=== PATIENT | female | born 1980 | race Caucasian/White ===

== ENCOUNTER 2016-08-08 20:51 | Inpatient (IN) | payer OTHER ==
[~2016-08-08] VITALS: Ht 167.6 cm; Wt 76.2 kg
[~2016-08-08 20:51] MED LIST: ATV/1 PO; CHOL1000 PO; CYAN100048 SC; FERR1TAB23 PO; PEDI1CHW82 PO
[2016-08-08] MEDS ORDERED: ONDANSETRON INJ 2 MG/ML 2 ML VIAL IV STA (21:20)
[2016-08-08] MEDS ORDERED: SODIUM CHLORIDE 0.9% 1000ML 1,000 ML IV STA ×2 (21:20→23:07)
[2016-08-08] MEDS ORDERED: FENTANYL CITRATE INJ 50 MCG/1 ML 2 ML VIAL IV STA (21:20)
[2016-08-08 21:38] LABS: BASO % 0.2 %; BASO ABS # 0.01 K/uL (0-0.2); COMPLETE YES; HEMATOCRIT 39.7 % (37-47); IG% 0.2 %; LYMPH % 14.1 %; LYMPH ABS # 0.86 K/uL (1.2-3.4); MEAN CORPUSCULAR HEMOGLOBIN 30.8 pg (25-34); MEAN PLATELET VOLUME 10.2 fL (7.4-10.4); MONO % 3.1 %; NEUT % 82.4 %; PLATELET COUNT 152 K/uL (130-400); RED BLOOD COUNT 4.51 M/uL (4.2-5.4)
[2016-08-08] MEDS ORDERED: MULT1CHW32 PO (21:48)
[2016-08-08 21:56] LABS: BUN/CREATININE RATIO 14.9 (10-20); CREATININE 0.85 mg/dl (0.60-1.20); POTASSIUM 3.9 mmol/L (3.5-5.1)
[2016-08-08 21:58] LABS: PREG INTERNAL NEGATIVE QC NEG CLEAR BACKGROUND; PREG INTERNAL POSITIVE QC POS CONTROL LINE
--- NOTE | 2016-08-08 22:09 | EMERGENCY ROOM VISIT NOTE ---
History Report prepared by Jeanna: Rory Monroe Under the Supervision of: Dr. Boy Mina M.D. First contact with patient: 21:13 Chief Complaint: ABDOMINAL PAIN Stated Complaint: R ABD PAIN,FEVER Nursing Triage Summary: c/o right lateral abd pain that started at 1100 today while at work. also c/o n/v no diarrhea. History of Present Illness The patient is a 35 year old female who presents to the Emergency Room with complaints of right mid abdominal pain that began this morning. She rates the pain a 6/10 in severity. She awoke with this abdominal pain that has been getting worse all day. She has not had much of an appetite all day due to her increasing nausea. She then began to develop a fever, chills, and fatigue. She states that moving makes it worse and rest makes it better. She denies any history of abdominal surgery and recent trauma. She denies any chest pain, shortness of breath, rashes, syncope, headache, or back pain. Source of History: patient Onset: this morning Position: abdomen Symptom Intensity: 6/10 Quality: sharp Timing: worsening Modifying Factors (Worsening): movement Modifying Factors (Relieving): rest Associated Symptoms: + chills, + fevers, + nausea, No LOC, No SOB, No back pain, No chest pain, No headache, No rash Review of Systems See HPI for pertinent positives & negatives. A total of 10 systems reviewed and were otherwise negative. Past Medical & Surgical Medical Problems: (1) Bronchitis (2) Hypopotassemia (3) Hypovolemia (4) Kidney stone on right side Family History Diabetes mellitus Social History Smoking Status: Never Smoker Smokeless Tobacco Use: No Drug Use: none Occupation Status: employed Current/Historical Medications Scheduled Multiple Vitamins W/ Minerals (Alive Womens Gummy Vitami), 2 TAB PO QPM Allergies Coded Allergies: Iodine (Unverified Allergy, Unknown, UNKN, 12/01/15) Sulfamethoxazole (Unverified Allergy, Unknown, UNKN, 12/01/15) Physical Exam Vital Signs Date Time Temp Pulse Resp B/P Pulse Ox O2 Delivery O2 Flow Rate FiO2 08/08/16 23:10 80 18 128/69 96 Room Air 08/08/16 22:04 36.9 83 16 123/74 100 Room Air 08/08/16 21:14 37.1 96 18 151/86 99 Room Air Physical Exam GENERAL: Patient is uncomfortable appearing and in moderate acute distress. HEENT: No acute trauma, normocephalic atraumatic, mucous membranes moist, no nasal congestion, no scleral icterus. NECK: No stridor, no adenopathy, no meningismus, trachea is midline. LUNGS: No dyspnea. Clear to auscultation and equal bilaterally. No wheeze, no rhonchi. HEART: Regular rate and rhythm. No murmurs, rubs, gallops appreciated. ABDOMEN: Soft, moderately tender to the right mid abdomen with increased pain to the right lower quadrant, bowel sounds positive, no masses appreciated, no peritonitis. BACK: No midline tenderness, no CVA tenderness EXTREMITIES: Normal motion all extremities, no cyanosis, no edema. Wasting of upper and lower extremities. NEUROLOGIC: Alert and oriented, no acute motor or sensory deficits, no focal weakness, cranial nerves grossly intact. SKIN: No rash, no jaundice, no diaphoresis. Medical Decision & Procedures ER Provider Diagnostic Interpretation: Radiology results are stated below per my review and radiologist interpretation: ABDOMEN AND PELVIS CT WITHOUT CONTRAST CT DOSE: 1172.73 mGy.cm HISTORY: Right lower quadrant abdominal pain. TECHNIQUE: Multiaxial CT images of the abdomen and pelvis were performed without the use of intravenous and oral contrast according to the standard department stone protocol. COMPARISON STUDY: None. FINDINGS: There is a 1.5 cm obstructing stone at the right ureteropelvic junction resulting in moderate right hydronephrosis. No left renal calculi. The lung bases are essentially clear. No fractures within the visualized osseous structures. The liver, gallbladder, spleen, adrenal glands, and pancreas are unremarkable. No retroperitoneal lymphadenopathy. Bladder is not well-distended but appears unremarkable. The uterus and bilateral ovaries are within normal limits. Trace pelvic free fluid which is likely physiologic. Suboptimal evaluation for bowel pathology due to the lack of intravenous and oral contrast. However, there is no definite bowel wall thickening or obstruction. Normal appendix. IMPRESSION: A 1.5 cm obstructing stone at the right ureteropelvic junction resulting in moderate right hydronephrosis. Electronically signed by: Markos Herr M.D. 08/08/2016 10:15 PM Dictated Date/Time: 08/08/2016 10:10 PM Laboratory Results 08/08/16 21:28 Red Blood Count 4.51, Mean Corpuscular Volume 88.0, Mean Corpuscular Hemoglobin 30.8, Mean Corpuscular Hemoglobin Concent 35.0, Mean Platelet Volume 10.2, Neutrophils (%) (Auto) 82.4, Lymphocytes (%) (Auto) 14.1, Monocytes (%) (Auto) 3.1, Eosinophils (%) (Auto) 0.0, Basophils (%) (Auto) 0.2, Neutrophils # (Auto) 5.03, Lymphocytes # (Auto) 0.86, Monocytes # (Auto) 0.19, Eosinophils # (Auto) 0.00, Basophils # (Auto) 0.01 08/08/16 21:28 Test 08/08/16 21:28 08/08/16 22:35 White Blood Count 6.10 K/uL (4.8-10.8) Red Blood Count 4.51 M/uL (4.2-5.4) Hemoglobin 13.9 g/dL (12.0-16.0) Hematocrit 39.7 % (37-47) Mean Corpuscular Volume 88.0 fL (80-100) Mean Corpuscular Hemoglobin 30.8 pg (25-34) Mean Corpuscular Hemoglobin Concent 35.0 g/dl (32-36) Platelet Count 152 K/uL (130-400) Mean Platelet Volume 10.2 fL (7.4-10.4) Neutrophils (%) (Auto) 82.4 % Lymphocytes (%) (Auto) 14.1 % Monocytes (%) (Auto) 3.1 % Eosinophils (%) (Auto) 0.0 % Basophils (%) (Auto) 0.2 % Neutrophils # (Auto) 5.03 K/uL (1.4-6.5) Lymphocytes # (Auto) 0.86 K/uL (1.2-3.4) Monocytes # (Auto) 0.19 K/uL (0.11-0.59) Eosinophils # (Auto) 0.00 K/uL (0-0.5) Basophils # (Auto) 0.01 K/uL (0-0.2) RDW Standard Deviation 46.8 fL (36.4-46.3) RDW Coefficient of Variation 14.5 % (11.5-14.5) Immature Granulocyte % (Auto) 0.2 % Immature Granulocyte # (Auto) 0.01 K/uL (0.00-0.02) Anion Gap 8.0 mmol/L (3-11) Est Creatinine Clear Calc Drug Dose 97.2 ml/min Estimated GFR () 103.6 Estimated GFR (Non- 89.4 BUN/Creatinine Ratio 14.9 (10-20) Calcium Level 9.0 mg/dl (8.5-10.1) Total Bilirubin 0.5 mg/dl (0.2-1) Direct Bilirubin 0.2 mg/dl (0-0.2) Aspartate Amino Transf (AST/SGOT) 18 U/L (15-37) Alanine Aminotransferase (ALT/SGPT) 25 U/L (12-78) Alkaline Phosphatase 63 U/L (45-117) Total Protein 7.6 gm/dl (6.4-8.2) Albumin 4.1 gm/dl (3.4-5.0) Lipase 144 U/L (73-393) Human Chorionic Gonadotropin, Qual NEG (NEG) Urine Color YELLOW Urine Appearance CLEAR (CLEAR) Urine pH 5.5 (4.5-7.5) Urine Specific Diller 1.021 (1.000-1.030) Urine Protein NEG (NEG) Urine Glucose (UA) NEG (NEG) Urine Ketones 1+ (NEG) Urine Occult Blood 2+ (NEG) Urine Nitrite NEG (NEG) Urine Bilirubin NEG (NEG) Urine Urobilinogen NEG (NEG) Urine Leukocyte Esterase SMALL (NEG) Urine WBC (Auto) 5-10 /hpf (0-5) Urine RBC (Auto) 5-10 /hpf (0-4) Urine Hyaline Casts (Auto) 10-30 /lpf (0-5) Urine Epithelial Cells (Auto) >30 /lpf (0-5) Urine Bacteria (Auto) 1+ (NEG) Urine Test NEG (NEG) Laboratory results as reviewed by me. Medications Administered Medications (Trade) Dose Ordered Sig/Val Route Start Time Stop Time Status Last Admin Dose Admin Fentanyl Citrate (Fentanyl Inj) 50 mcg NOW STAT IV 08/08/16 21:20 08/08/16 21:22 DC 08/08/16 21:35 50 MCG Ondansetron HCl 4 mg 4 mg NOW STAT IV 08/08/16 21:20 08/08/16 21:22 DC 08/08/16 21:35 4 MG Sodium Chloride (Nss 1000ml) 1,000 ml @ 999 mls/hr Q1H1M STAT IV 08/08/16 21:20 08/08/16 22:20 DC 08/08/16 21:34 999 MLS/HR Hydromorphone HCl 0.5 mg 0.5 mg NOW STAT IV 08/08/16 22:41 08/08/16 22:42 DC 08/08/16 22:46 0.5 MG Sodium Chloride (Nss 1000ml) 1,000 ml @ 200 mls/hr Q5H STAT IV 08/08/16 23:07 08/09/16 01:17 DC 08/08/16 23:18 200 MLS/HR Ceftriaxone Sodium (Rocephin Inj) 1 gm NOW STAT IV 08/08/16 23:07 08/08/16 23:08 DC 08/08/16 23:17 1 GM ED Course 3: The patient was evaluated in room A11. A complete history and physical exam was performed. 0: Ordered Sodium Chloride 1000 ml @ 999 mls/hr IV, Zofran Inj 4 mg IV, Fentanyl Inj 50 mcg IV 2134: The patient's IV is in place, and she is getting pain medications. 2152: She is feeling much better and denies the need for further pain medications. 2232: After reassessment, the patient is feeling "alright". 2241: The patient's pain is increasing at this time. However, she would like to go home. 2236: I spoke with Dr. Kitchen of Urology at this time. He said that if the patient still wants to go home and she has no fever, she has clean urine, and a normal white count, then she can attempt to do home treatment. Otherwise, he believes she should be admitted. 2307: Her pain continues as well as her urine showing some white cells. She will be evaluated further as an inpatient. 235: Upon reevaluation, the patient is resting. Discussed results and treatment plan with the patient. She verbalized understanding and agreement with the treatment plan. The patient will be evaluated by Dr. Briseno - [facility], for further management. Medical Decision Differential: Appendicitis, , MSK, Diverticulitis, UTI, Renal Colic, Bowel Obstruction, Aortic Pathology, , amongst other pathologies entertained. 35 yr old female arrives with right mid abdominal pain and low grad fevers throughout the day. Quite stoic though clearly uncomfortable. Improved with fentanyl though eventually requiring further IV narcotics. Given degree of discomfort felt that CT indicated which revealed 1.5cm right proximal ureteral stone with right hydro. This is consistent with cause of her pain. With persistent pain I feel she will need to come in. Does have WBC and bacteria in urine though I suspect this is due to unclean catch. With reported fevers however will treat empirically for infection. She is not hypotensive nor is wbc elevated. Discussed with hospitalist and urology. Consults Time Called: 2229 Consulting Physician: Dr. Kitchen - Urology Returned Call: [phone] We discussed the patient's case. Additional Consults: Time Called: 2353 Consulted Physician: Dr. Briseno - [facility] Returned Call: [phone] Additional Comments: He will be evaluating the patient for further management. Impression Primary Impression: Right ureteral stone Additional Impressions: Hydronephrosis Intractable pain Scribe Attestation The scribe's documentation has been prepared under my direction and personally reviewed by me in its entirety. I confirm that the note above accurately reflects all work, treatment, procedures, and medical decision making performed by me. Departure Information Dispostion Being Evaluated By Hospitalist Referrals Shaq Thomas M.D. (PCP) Patient Instructions My [facility] Problem Qualifiers Additional Impressions: Hydronephrosis Hydronephrosis type: with renal calculous obstruction Qualified Codes: N13.2 - Hydronephrosis with renal and ureteral calculous obstruction
--- NOTE | 2016-08-08 22:18 | DIAGNOSTIC IMAGING REPORT ---
ABDOMEN AND PELVIS CT WITHOUT CONTRAST CT DOSE: 1172.73 mGy.cm HISTORY: Right lower quadrant abdominal pain. TECHNIQUE: Multiaxial CT images of the abdomen and pelvis were performed without the use of intravenous and oral contrast according to the standard department stone protocol. COMPARISON STUDY: None. FINDINGS: There is a 1.5 cm obstructing stone at the right ureteropelvic junction resulting in moderate right hydronephrosis. No left renal calculi. The lung bases are essentially clear. No fractures within the visualized osseous structures. The liver, gallbladder, spleen, adrenal glands, and pancreas are unremarkable. No retroperitoneal lymphadenopathy. Bladder is not well-distended but appears unremarkable. The uterus and bilateral ovaries are within normal limits. Trace pelvic free fluid which is likely physiologic. Suboptimal evaluation for bowel pathology due to the lack of intravenous and oral contrast. However, there is no definite bowel wall thickening or obstruction. Normal appendix. IMPRESSION: A 1.5 cm obstructing stone at the right ureteropelvic junction resulting in moderate right hydronephrosis. Electronically signed by: Markos Herr M.D. 08/08/2016 10:15 PM Dictated Date/Time: 08/08/2016 10:10 PM
[2016-08-08] MEDS ORDERED: HYDROmorphone INJ 0.5 MG/0.5 ML SYR IV STA (22:41)
[2016-08-08 22:49] LABS: URINE APPEARANCE CLEAR (CLEAR); URINE BILIRUBIN NEG (NEG); URINE COLOR YELLOW; URINE EPITHELIAL CELL AUTO >30 /lpf (0-5); URINE NITRITE NEG (NEG); URINE PH 5.5 (4.5-7.5); URINE SPECIFIC GRAVITY 1.021 (1.000-1.030); UROBILINOGEN NEG (NEG); ZZUR CULT IF INDIC CLEAN CATCH YES
[2016-08-08 22:50] LABS: MANUAL MICROSCOPIC REQUIRED? NO; REVIEW REQ? NO
[2016-08-08] MEDS ORDERED: CEFTRIAXONE SOD INJ 1 GM ADDVIAL IV STA (23:07)
[2016-08-08] MEDS ORDERED: HYDROmorphone INJ 1 MG/ML SYR IV PRN (23:15)
[2016-08-09] VITALS (7 sets, daily range): BP systolic 107–116; BP diastolic 67–77; PULSE 71–84; TEMP 36.5–37.1; O2SAT 90–100; Ht 167.6 cm; Wt 76.2 kg
[2016-08-09] MEDS ORDERED: ACETAMINOPHEN 325 MG TAB PO PRN
[2016-08-09] MEDS ORDERED: POLYETHYLENE (MIRALAX) 17 GM PACK PO PRN
[2016-08-09] MEDS ORDERED: MAGNESIUM HYDROXIDE SUSP 30 ML UDC PO PRN
--- NOTE | 2016-08-09 00:11 | History and Physical ---
History & Physical Date & Time of Service: Aug 09, 2016 at 00:10 Chief Complaint: R Abd Pain,Fever Primary Care Physician: Shaq Thomas M.D. History of Present Illness Source: patient 35-year-old female with past history anemia, retinitis pigmentosa, idiopathic ataxia and sensory neuropathy presented with right sided abdominal pain that started this morning. Pain is rated as 6/10, constant with no radiation. Associated with nausea , vomiting, dry heaves. She also developed some chills with fever. Denies any dysuria, frequency, urgency, hematuria. Denies any vaginal bleeding, vaginal discharge or itching. Denies any history of abdominal surgery. No history of kidney stones. Family history of kidney stones in grandmother. Denies back pain, diarrhea, constipation or rectal bleeding or melena. She had a recent endoscopy and colonoscopy which revealed mild gastritis and hemorrhoids. Past Medical/Surgical History Medical Problems: (1) Bronchitis Status: Resolved (2) Hypopotassemia Status: Resolved (3) Hypovolemia Status: Resolved Family History Diabetes mellitus Social History Smoking Status: Never Smoker Smokeless Tobacco Use: No Drug Use: none Occupational Status: employed [employer] History of MDRO: No Allergies Coded Allergies: Iodine (Unverified Allergy, Unknown, UNKN, 12/01/15) Sulfamethoxazole (Unverified Allergy, Unknown, UNKN, 12/01/15) Home Medications Scheduled Multiple Vitamins W/ Minerals (Alive Womens [place]umwalter Vitami), 2 TAB PO QPM Review of Systems Constitutional: + chills, + fever Eyes: No worsening of vision ENT: No hearing loss, No unusual epistaxis Respiratory: No cough, No shortness of breath, No sputum Cardiovascular: No chest pain Abdomen: + nausea, + pain (Right), + vomiting, No GI bleeding, No diarrhea Genitourinary - Female: No dysuria, No urinary frequency, No urinary urgency, No vaginal bleeding, No vaginal discharge, No vaginal itching Neurologic: + numbness/tingling (of b/l lower extremities) Psychiatric: No depression symptoms Endocrine: No fatigue Physical Exam Vital Signs Date Time Temp Pulse Resp B/P Pulse Ox O2 Delivery O2 Flow Rate FiO2 08/08/16 23:10 80 18 128/69 96 Room Air 08/08/16 22:04 36.9 83 16 123/74 100 Room Air 08/08/16 21:14 37.1 96 18 151/86 99 Room Air General Appearance: WD/WN, + mild distress Head: normocephalic Eyes: normal inspection ENT: normal ENT inspection, hearing grossly normal, TMs normal Neck: supple, no adenopathy Respiratory/Chest: chest non-tender, lungs clear, normal breath sounds, no respiratory distress, no accessory muscle use Cardiovascular: regular rate, rhythm, no edema Abdomen/GI: normal bowel sounds, soft, + tenderness (on the right side) Back: normal inspection, no CVA tenderness Extremities/Musculoskelatal: no pedal edema Neurologic/Psych: alert, normal mood/affect, oriented x 3 Skin: normal color Diagnostics Laboratory Results Results Past 24 Hours Test 08/08/16 21:28 08/08/16 22:35 Range/Units White Blood Count 6.10 4.8-10.8 K/uL Red Blood Count 4.51 4.2-5.4 M/uL Hemoglobin 13.9 12.0-16.0 g/dL Hematocrit 39.7 37-47 % Mean Corpuscular Volume 88.0 80-100 fL Mean Corpuscular Hemoglobin 30.8 25-34 pg Mean Corpuscular Hemoglobin Concent 35.0 32-36 g/dl Platelet Count 152 130-400 K/uL Mean Platelet Volume 10.2 7.4-10.4 fL Neutrophils (%) (Auto) 82.4 % Lymphocytes (%) (Auto) 14.1 % Monocytes (%) (Auto) 3.1 % Eosinophils (%) (Auto) 0.0 % Basophils (%) (Auto) 0.2 % Neutrophils # (Auto) 5.03 1.4-6.5 K/uL Lymphocytes # (Auto) 0.86 1.2-3.4 K/uL Monocytes # (Auto) 0.19 0.11-0.59 K/uL Eosinophils # (Auto) 0.00 0-0.5 K/uL Basophils # (Auto) 0.01 0-0.2 K/uL RDW Standard Deviation 46.8 36.4-46.3 fL RDW Coefficient of Variation 14.5 11.5-14.5 % Immature Granulocyte % (Auto) 0.2 % Immature Granulocyte # (Auto) 0.01 0.00-0.02 K/uL Sodium Level 142 136-145 mmol/L Potassium Level 3.9 3.5-5.1 mmol/L Chloride Level 108 98-107 mmol/L Carbon Dioxide Level 26 21-32 mmol/L Anion Gap 8.0 3-11 mmol/L Blood Urea Nitrogen 13 7-18 mg/dl Creatinine 0.85 0.60-1.20 mg/dl Est Creatinine Clear Calc Drug Dose 97.2 ml/min Estimated GFR () 103.6 Estimated GFR (Non- 89.4 BUN/Creatinine Ratio 14.9 10-20 Random Glucose 116 70-99 mg/dl Calcium Level 9.0 8.5-10.1 mg/dl Total Bilirubin 0.5 0.2-1 mg/dl Direct Bilirubin 0.2 0-0.2 mg/dl Aspartate Amino Transf (AST/SGOT) 18 15-37 U/L Alanine Aminotransferase (ALT/SGPT) 25 12-78 U/L Alkaline Phosphatase 63 45-117 U/L Total Protein 7.6 6.4-8.2 gm/dl Albumin 4.1 3.4-5.0 gm/dl Lipase 144 73-393 U/L Human Chorionic Gonadotropin, Qual NEG NEG Urine Color YELLOW Urine Appearance CLEAR CLEAR Urine pH 5.5 4.5-7.5 Urine Specific Ulysses 1.021 1.000-1.030 Urine Protein NEG NEG Urine Glucose (UA) NEG NEG Urine Ketones 1+ NEG Urine Occult Blood 2+ NEG Urine Nitrite NEG NEG Urine Bilirubin NEG NEG Urine Urobilinogen NEG NEG Urine Leukocyte Esterase SMALL NEG Urine WBC (Auto) 5-10 0-5 /hpf Urine RBC (Auto) 5-10 0-4 /hpf Urine Hyaline Casts (Auto) 10-30 0-5 /lpf Urine Epithelial Cells (Auto) >30 0-5 /lpf Urine Bacteria (Auto) 1+ NEG Urine Test NEG NEG Microbiology Results 08/08/16 Urine Culture, Received Pending Diagnostic Radiology ABDOMEN AND PELVIS CT WITHOUT CONTRAST CT DOSE: 1172.73 mGy.cm HISTORY: Right lower quadrant abdominal pain. TECHNIQUE: Multiaxial CT images of the abdomen and pelvis were performed without the use of intravenous and oral contrast according to the standard department stone protocol. COMPARISON STUDY: None. FINDINGS: There is a 1.5 cm obstructing stone at the right ureteropelvic junction resulting in moderate right hydronephrosis. No left renal calculi. The lung bases are essentially clear. No fractures within the visualized osseous structures. The liver, gallbladder, spleen, adrenal glands, and pancreas are unremarkable. No retroperitoneal lymphadenopathy. Bladder is not well-distended but appears unremarkable. The uterus and bilateral ovaries are within normal limits. Trace pelvic free fluid which is likely physiologic. Suboptimal evaluation for bowel pathology due to the lack of intravenous and oral contrast. However, there is no definite bowel wall thickening or obstruction. Normal appendix. IMPRESSION: A 1.5 cm obstructing stone at the right ureteropelvic junction resulting in moderate right hydronephrosis. Impression Assessment and Plan 35-year-old female with past history anemia, retinitis pigmentosa, idiopathic ataxia and sensory neuropathy presented with right sided abdominal pain that started this morning. Associated with nausea, vomiting, fever and chills. CT abdomen and pelvis revealed 1.5 cm obstructing stone at the right ureteropelvic junction. Considering the size of the stone, it is unlikely to pass spontaneously. some concern of infection as UA revealed small leuc esterase and few WBCs and she has an obstructing renal calculus. will cover empirically. Complicated UTI with obstructing Right renal calculus : - CT abdomen and pelvis :1.5 cm obstructing stone at the right ureteropelvic junction resulting in moderate right hydronephrosis. - IV fluids NSS at 150 mls/hr - UA: 2+ occult blood, small leuk esterase, WBCs 5-10 - UC pending - IV Rocephin daily to cover for infection - Pain control with IV Dilaudid( avoided NSAIDS in anticipation of lithotripsy) - Urology consult Full code DVT : SCD Disposition: admitted to Med/surg Level of Care Med/Surg Resuscitation Status FULL RESUSCITATION VTE Prophylaxis VTE Risk Assessment Done? Y/N: Yes Risk Level: Moderate Given or contraindicated: SCD's (laboratory) Note Total Time: Critical Care 30 - 74 minutes Resident Tracking Resident Involvement: Resident Care Provided Care Provided: Adult [facility] Medicine Assessment and Plan Attending Addendum: I have physically seen and examined this patient, have directed their medical care, have supervised the medical residents activities, and agree with the H&P as noted above, with the following changes: NONE
[2016-08-09] MEDS: SODIUM CHLORIDE 0.9% 1000ML 1,000 ML IV SCH ×3 (04:11→14:51)
[2016-08-09] MEDS: HYDROmorphone INJ 0.5 MG/0.5 ML SYR IV PRN ×2 (04:15→08:33)
[2016-08-09 06:00] LABS: MEAN CELL VOLUME 89.1 fL (80-100); MEAN CORPUSCULAR HEMOGLOBIN 29.8 pg (25-34); MEAN CORPUSCULAR HGB CONC 33.4 g/dl (32-36); MEAN PLATELET VOLUME 10.1 fL (7.4-10.4); PLATELET COUNT 135 K/uL (130-400); RED BLOOD COUNT 3.93 M/uL (4.2-5.4); WHITE BLOOD COUNT 5.96 K/uL (4.8-10.8)
[2016-08-09 06:38] LABS: BUN/CREATININE RATIO 12.1 (10-20); CALCIUM 8.1 mg/dl (8.5-10.1); CREATININE 0.57 mg/dl (0.60-1.20); POTASSIUM 3.7 mmol/L (3.5-5.1)
[2016-08-09] MEDS ORDERED: CIPROFLOXACIN 400MG / 200ML D5W IV ONE (07:30)
--- NOTE | 2016-08-09 08:13 | Urology Consultation ---
History General Date of Service: Aug 09, 2016. Chief Complaint: right flank pain Primary Care Physician: Shaq Thomas M.D. History of Present Illness 35 yo female presents to [facility] with c/o right flank pain, n/v, and fever of 100F that started yesterday. CT scan showing a 1.5cm right UPJ stone. She denies a previous hx of stones. White count is normal. Cr is normal. UC&S is pending. She has been afebrile since admission. Pain is currently controlled. Denies dysuria or hematuria. Denies n/v this morning. Imaging Imaging: CT Laboratory Last 24 Hours Test 08/08/16 21:28 08/08/16 22:35 08/09/16 05:06 White Blood Count 6.10 K/uL 5.96 K/uL Red Blood Count 4.51 M/uL 3.93 M/uL Hemoglobin 13.9 g/dL 11.7 g/dL Hematocrit 39.7 % 35.0 % Mean Corpuscular Volume 88.0 fL 89.1 fL Mean Corpuscular Hemoglobin 30.8 pg 29.8 pg Mean Corpuscular Hemoglobin Concent 35.0 g/dl 33.4 g/dl Platelet Count 152 K/uL 135 K/uL Mean Platelet Volume 10.2 fL 10.1 fL Neutrophils (%) (Auto) 82.4 % Lymphocytes (%) (Auto) 14.1 % Monocytes (%) (Auto) 3.1 % Eosinophils (%) (Auto) 0.0 % Basophils (%) (Auto) 0.2 % Neutrophils # (Auto) 5.03 K/uL Lymphocytes # (Auto) 0.86 K/uL Monocytes # (Auto) 0.19 K/uL Eosinophils # (Auto) 0.00 K/uL Basophils # (Auto) 0.01 K/uL RDW Standard Deviation 46.8 fL 48.0 fL RDW Coefficient of Variation 14.5 % 14.5 % Immature Granulocyte % (Auto) 0.2 % Immature Granulocyte # (Auto) 0.01 K/uL Sodium Level 142 mmol/L 143 mmol/L Potassium Level 3.9 mmol/L 3.7 mmol/L Chloride Level 108 mmol/L 110 mmol/L Carbon Dioxide Level 26 mmol/L 27 mmol/L Anion Gap 8.0 mmol/L 6.0 mmol/L Blood Urea Nitrogen 13 mg/dl 7 mg/dl Creatinine 0.85 mg/dl 0.57 mg/dl Est Creatinine Clear Calc Drug Dose 97.2 ml/min 145.0 ml/min Estimated GFR () 103.6 140.2 Estimated GFR (Non- 89.4 121.0 BUN/Creatinine Ratio 14.9 12.1 Random Glucose 116 mg/dl 86 mg/dl Calcium Level 9.0 mg/dl 8.1 mg/dl Total Bilirubin 0.5 mg/dl Direct Bilirubin 0.2 mg/dl Aspartate Amino Transf (AST/SGOT) 18 U/L Alanine Aminotransferase (ALT/SGPT) 25 U/L Alkaline Phosphatase 63 U/L Total Protein 7.6 gm/dl Albumin 4.1 gm/dl Lipase 144 U/L Human Chorionic Gonadotropin, Qual NEG Urine Color YELLOW Urine Appearance CLEAR Urine pH 5.5 Urine Specific [place] 1.021 Urine Protein NEG Urine Glucose (UA) NEG Urine Ketones 1+ Urine Occult Blood 2+ Urine Nitrite NEG Urine Bilirubin NEG Urine Urobilinogen NEG Urine Leukocyte Esterase SMALL Urine WBC (Auto) 5-10 /hpf Urine RBC (Auto) 5-10 /hpf Urine Hyaline Casts (Auto) 10-30 /lpf Urine Epithelial Cells (Auto) >30 /lpf Urine Bacteria (Auto) 1+ Urine Test NEG Problem List Medical Problems: (1) Hydronephrosis Status: Acute (2) Intractable pain Status: Acute (3) Right ureteral stone Status: Acute Past History other (anemia, retinitis pigmentosa, idiopathic ataxia, hemorrhoids, gastritis) Past Surgical History: other (cataract surgery) Family History Diabetes mellitus nephrolithiasis Social History Smoking: non-smoker Drug use: none Occupation status: employed History of MDRO No Allergies Coded Allergies: Iodine (Verified Allergy, Unknown, UNKNOWN, 08/09/16) Sulfa Antibiotics (Verified Allergy, Unknown, UNKNOWN, 08/09/16) Sulfamethoxazole (Verified Allergy, Unknown, UNKNOWN, 08/09/16) Medications Home Medications: Home Meds and Scripts Medications Dose Route/Sig Max Daily Dose Days Date Category Alive Womens Gummy Vitami (Multiple Vitamins W/ Minerals) 1 Chw Chw 2 Tab PO QPM 08/08/16 Reported Inpatient Medications: Current Inpatient Medications Medications (Trade) Dose Ordered Sig/Val Route Start Time Stop Time Status Last Admin Dose Admin Acetaminophen (Tylenol Tab) 650 mg Q4H PRN PO 08/09/16 00:00 09/08/16 00:00 Magnesium Hydroxide (Milk Of Magnesia Susp) 30 ml Q6H PRN PO 08/09/16 00:00 09/08/16 00:00 Polyethylene (Miralax Powder Packet) 17 gm DAILY PRN PO 08/09/16 00:00 09/08/16 00:00 Ondansetron HCl 4 mg 4 mg Q6H PRN IV 08/09/16 00:00 09/08/16 00:00 Sodium Chloride (Nss 1000ml) 1,000 ml @ 150 mls/hr Q6H40M IV 08/09/16 01:15 09/08/16 01:14 08/09/16 04:11 150 MLS/HR Hydromorphone HCl 0.5 mg 0.5 mg Q2H PRN IV 08/09/16 00:00 08/23/16 00:00 08/09/16 04:15 0.5 MG Ceftriaxone Sodium/Dextrose (Rocephin Inj/ Dextrose Add-[place] 50ML) 50 ml @ 100 mls/hr Q24H IV 08/09/16 23:00 08/17/16 23:29 Review of Systems Review of Systems Constitutional: No chills, No fever Eyes: No double vision Neurological: No dizzy Endocrine: No excessive thirst Gastrointestinal: No abdominal pain, No nausea, No vomiting Cardiovascular: No chest pain Respiratory: No shortness of breath Skin: No rash Musculoskeletal: No back pain Female : No blood in urine, No painful urination Physical Exam Vital Signs: Vital Signs Past 12 Hours Date Time Temp Pulse Resp B/P Pulse Ox O2 Delivery O2 Flow Rate FiO2 08/09/16 07:15 Room Air 08/09/16 06:45 36.8 82 19 107/70 100 Room Air 08/09/16 01:15 37.1 75 16 108/67 97 Room Air 08/09/16 01:10 98 Room Air 08/09/16 00:53 71 18 116/70 98 08/08/16 23:10 80 18 128/69 96 Room Air 08/08/16 22:04 36.9 83 16 123/74 100 Room Air 08/08/16 21:14 37.1 96 18 151/86 99 Room Air Physical Exam: General Appearance: no apparent distress Eyes: bilateral eyes normal inspection ENT: hearing grossly normal Neck: no JVD Respiratory/Chest: no respiratory distress, no accessory muscle use Cardiovascular: no JVD Extremities: normal inspection Neurologic/Psychiatric: alert, normal mood/affect, oriented x 3 Skin: normal color Assessment & Plan Assessment & Plan Treatment Planned: cystoscopy w/ stent A/P: 1.5cm right UPJ stone AFVSS. Stone too large to pass on own. I have recommended a cysto with right ureteral stent placement today followed by ESWL this Tuesday. Risks and benefits of the procedure discussed with the pt. All questions answered. Pt agrees to the procedure at this time. Consent obtained. Will obtain a pre-op EKG and chest x-ray this morning. I have ordered a dose of Cipro pre-op. Recommend she remain off any NSAIDS or other anticoagulants as it is planned she have ESWL this Tuesday. Thanks for the consult. Will continue to follow along with primary service.
--- NOTE | 2016-08-09 08:36 | DIAGNOSTIC IMAGING REPORT ---
CHEST 2 VIEWS ROUTINE CLINICAL HISTORY: Right ureteral stone. Preoperative evaluation. COMPARISON STUDY: No previous studies for comparison. FINDINGS: Lung volumes are normal. Lungs are clear. There is no pneumothorax or pleural effusion. Pulmonary vascularity is normal. Cardiac size is normal. Mediastinal contours are normal. IMPRESSION: No acute cardiopulmonary findings. Electronically signed by: Jaden Mota M.D. 08/09/2016 8:34 AM Dictated Date/Time: 08/09/2016 8:34 AM
--- NOTE | 2016-08-09 08:38 | DIAGNOSTIC IMAGING REPORT ---
KUB CLINICAL HISTORY: Preoperative evaluation. Calculus. COMPARISON STUDY: CT of the abdomen and pelvis August 08, 2016. FINDINGS: A 1.3 cm right sided urinary calculus is again noted. This may be within the right renal pelvis. Pelvic calcifications represent fluid was. Bowel gas pattern is normal. IMPRESSION: 1.3 cm right sided urinary calculus which may be within the right renal pelvis. Electronically signed by: Jaden Mota M.D. 08/09/2016 8:36 AM Dictated Date/Time: 08/09/2016 8:35 AM
[2016-08-09] MEDS ORDERED: LIDOCAINE HCL 2% 2 ML VIAL (20MG/ML) ONE (11:27)
[2016-08-09] MEDS ORDERED: MIDAZOLAM HCL 1 MG/ML 2ML VIAL ONE (11:27)
[2016-08-09] MEDS ORDERED: PROPOFOL IV EMULSION 10 MG/ML 20 ML VIAL IV ONE (11:27)
[2016-08-09] MEDS ORDERED: FENTANYL CITRATE INJ 50 MCG/1 ML 2 ML VIAL ONE ×2 (11:28→13:34)
[2016-08-09] MEDS ORDERED: CIPROFLOXACIN 400MG / 200ML D5W ONE (11:45)
--- NOTE | 2016-08-09 12:10 | History & Physical Bridge Note ---
H&P Re-Evaluation Bridge Note: I have examined the patient, reviewed the History & Physical and in the interval since the performance of the History & Physical I have noted the following changes of clinical significance: No changes noted
[2016-08-09] MEDS ORDERED: CONRAY 30% 150ML BOTTLE ONE (12:29)
[2016-08-09] MEDS ORDERED: ONDANSETRON INJ 2 MG/ML 2 ML VIAL ONE (12:59)
[2016-08-09] MEDS ORDERED: DEXAMETHASONE SOD INJ 4 MG/ML VIAL ONE (12:59)
--- NOTE | 2016-08-09 13:08 | [facility] Post Operative Brief Note ---
Immediate Operative Summary Operative Date Aug 09, 2016. Pre-Operative Diagnosis Right uteral stone Post-Operative Diagnosis Right uteral stone Procedure(s) Performed cystoscopy, right retrograde pyelogram with placement of right ureteral stent Surgeon Dr. Kline Turner Machine Surgeon(s) none Estimated Blood Loss 0mL Findings large right UPJ stone Specimens none per surgeon Drains 6x26 right stent Anesthesia general Complication(s) None Disposition Recovery Room / PACU
--- NOTE | 2016-08-09 13:23 | DIAGNOSTIC IMAGING REPORT ---
RETROGRADE INCLUDES KUB HISTORY: Right-sided stent placement. FLUOROSCOPY TIME: 25 seconds. FINDINGS: 3 fluoroscopic spot images were submitted for review. Initial images demonstrate retrograde opacification of the right ureter. Filling defect at the ureteropelvic junction consistent with the patient's known stone. Subsequent images demonstrate a guidewire and placement of a right ureteral stent. Only the proximal portion of the stent is visualized but appears to be in good position. IMPRESSION: Fluoroscopy provided for right ureteral stent placement. Electronically signed by: Markos Herr M.D. 08/09/2016 1:21 PM Dictated Date/Time: 08/09/2016 1:20 PM
[2016-08-09] MEDS ORDERED: EpHEDrine SULFATE INJ 50 MG/ML AMP IV PRN (13:30)
[2016-08-09] MEDS ORDERED: FENTANYL CITRATE INJ 50 MCG/1 ML 2 ML VIAL IV PRN (13:30)
[2016-08-09] MEDS ORDERED: PROMETHAZINE HCL INJ 12.5 MG in SODIUM CHLORIDE 0.9% 50ML 50 ML IV PRN (13:30)
[2016-08-09] MEDS ORDERED: NALOXONE HCL 0.4 MG/1 ML VIAL/CARP IV PRN (13:30)
[2016-08-09] MEDS ORDERED: ATROPINE SULFATE 0.1 MG/ML 5ML SYR IV PRN (13:30)
[2016-08-09] MEDS ORDERED: ONDANSETRON INJ 2 MG/ML 2 ML VIAL IV PRN ×2 (13:30)
--- NOTE | 2016-08-09 14:19 | Anesthesiology Progress Note ---
Anesthesia Post Op Note Date & Time Aug 09, 2016 at 14:19 Vital Signs Pain Intensity: 0 Vital Signs Past 12 Hours Date Time Temp Pulse Resp B/P Pulse Ox O2 Delivery O2 Flow Rate FiO2 08/09/16 13:45 36.6 08/09/16 13:35 83 16 118/74 100 Mask 5 08/09/16 13:25 75 16 115/82 100 Mask 5 08/09/16 13:15 78 16 117/82 100 Mask 5 08/09/16 13:07 36.5 72 16 129/77 100 Mask 5 08/09/16 07:15 Room Air 08/09/16 06:45 36.8 82 19 107/70 100 Room Air Notes Mental Status: alert / awake / arousable, participated in evaluation Pt Amnestic to Procedure: Yes Nausea / Vomiting: adequately controlled Pain: adequately controlled Airway Patency, RR, SpO2: stable & adequate BP & HR: stable & adequate Hydration State: stable & adequate Anesthetic Complications: no major complications apparent
[2016-08-09] MEDS ORDERED: CIPR-255 PO (15:31)
--- NOTE | 2016-08-09 15:33 | Discharge Instructions ---
Discharge Instructions Date of Service Aug 09, 2016. Admission Reason for Admission: Kidney Stone On Right Side Discharge Discharge Diagnosis / Problem: 1.5 cm kidney stone Discharge Goals Goal(s): Decrease discomfort, Improve function, Increase independence, Improve disease control, Diagnostic testing, Therapeutic intervention Activity Recommendations Activity Limitations: resume your previous activity Exercise/Sports Limitations: none Patient to be discharged home Prescription sent electronically to pharmacy for antibiotic cipro to take twice a day for 7 days for urinary tract infection If worsening pain, blood in urine, fevers please report to ER Please follow up with Dr Kitchen as scheduled . Current Hospital Diet Patient's current hospital diet: Regular Diet Discharge Diet Recommended Diet: Regular Diet Procedures Procedures Performed: cystoscopy, right retrograde pyelogram with placement of right ureteral stent Pending Studies Studies pending at discharge: no Medical Emergencies . Who to Call and When: Medical Emergencies: If at any time you feel your situation is an emergency, please call 911 immediately. . Non-Emergent Contact Non-Emergency issues call your: Primary Care Provider Call Non-Emergent contact if: you have a fever, your pain is worsening . . "Provider Documentation" section prepared by Damien Medina. VTE Core Measure Inpt VTE Proph given/why not?: SCD's (laboratory)
--- NOTE | 2016-08-09 15:35 | Discharge Summary ---
Discharge Summary Date of Service Aug 09, 2016. Discharge Summary Admission Date: Aug 08, 2016 at 23:54 Discharge Date: Aug 09, 2016 Discharge Disposition: Home Principal Diagnosis: Right kidney stone, UTI Consultations: Urology Medication Reconciliation New Medications: Ciprofloxacin Hcl (Cipro) 500 Mg Tab 500 MG PO BID for 7 Days, #14 TAB Continued Medications: Multiple Vitamins W/ Minerals (Alive Ana Hubbard) 1 Chw Chw 2 TAB PO QPM Discharge Exam Review of Systems: Constitutional: No chills, No fever Respiratory: No cough, No dyspnea on exertion, No shortness of breath, No sputum Cardiovascular: No chest pain, No orthopnea Abdomen: No diarrhea, No nausea, No pain, No vomiting Musculoskeletal: No joint pain, No muscle pain Genitourinary - Female: No dysuria, No urinary frequency, No urinary urgency Neurologic: No paralysis, No weakness Physical Exam: General Appearance: WD/WN, no apparent distress Neck: supple, no adenopathy Respiratory/Chest: chest non-tender, lungs clear, normal breath sounds Cardiovascular: no edema, no gallop Abdomen / GI: non tender, soft Neurologic/Psychiatric: alert, oriented x 3 Hospital Course 35-year-old female with past history anemia, retinitis pigmentosa, idiopathic ataxia and sensory neuropathy presented with right sided abdominal pain that started this morning. Associated with nausea, vomiting, fever and chills. CT abdomen and pelvis revealed 1.5 cm obstructing stone at the right ureteropelvic junction. Considering the size of the stone, it is unlikely to pass spontaneously. some concern of infection as UA revealed small leuc esterase and few WBCs and she has an obstructing renal calculus. will cover empirically. Complicated UTI with obstructing Right renal calculus : - CT abdomen and pelvis - 1.5 cm obstructing stone at the right ureteropelvic junction resulting in moderate right hydronephrosis. - IV fluids NSS at 150 mls/hr - UA: 2+ occult blood, small leuk esterase, WBCs 5-10 - UC prelim for gram neg bacilli - IV Rocephin daily to cover for infection - Pain control with IV Dilaudid( avoided NSAIDS in anticipation of lithotripsy) - Urology consulted, stent placed 08/09, discharged with cipro for 7 days, f/u with urology on tuesday, lithotripsy scheduled as well Full code DVT : SCD Total Time Spent: Greater than 30 minutes This includes examination of the patient, discharge planning, medication reconciliation, and communication with other providers. Discharge Instructions Please refer to the electronic Patient Visit Report (Discharge Instructions) for additional information. Additional Copies To Shaq Thomas M.D.
--- NOTE | 2016-08-09 18:02 | OPERATIVE REPORT ---
DATE OF OPERATION: 08/09/2016 PREOPERATIVE DIAGNOSIS: Obstructing right ureteropelvic junction calculus 1.5 cm. POSTOPERATIVE DIAGNOSIS: Same. PROCEDURE: Cystoscopy, right retrograde pyelogram, placement of indwelling double J right ureteral stent 6-Malawian x 26 cm. FINDINGS: Cystoscopic exam revealed normal urethra. Bladder showed no mucosal abnormalities. Right retrograde showed a stone at the right UPJ. SURGEON: Praful Kline MD ANESTHESIA: General. DRAINS: A 6-Malawian x 26 cm right ureteral stent. COMPLICATIONS: None. SPECIMENS: None. INDICATIONS FOR PROCEDURE: The patient is a 35-year-old white female who was admitted through the Emergency Room with right renal colic secondary to a 1.5 cm obstructing right ureteral stone. Her pain continued through today and she is brought down for stent placement. DESCRIPTION OF PROCEDURE: After the induction of an adequate general anesthetic and appropriate time-out, the patient was placed in the dorsal lithotomy position, lower abdomen and genitalia were prepped with Hibiclens and draped in a sterile fashion. Using a 22-Malawian cystoscope, routine cystoscopic exam was performed with the above noted findings with the 30 and 70 degree lenses. Next, using a 5-Malawian Dos Rios catheter, right retrograde pyelogram was performed with the above noted findings, and then through the Dos Rios catheter, a 0.03 guidewire was passed up the right ureter under fluoroscopic guidance until positioned in the renal pelvis. Dos Rios catheter was removed and a 6-Malawian x 26 cm stent was passed over the guidewire under fluoroscopic guidance until positioned in the renal pelvis. The guidewire was removed. There was good curl at the bladder level. The patient's bladder was then drained, cystoscope and sheath were removed. All needle, sponge and instrument counts were correct at the end of the case. The patient tolerated the procedure well and went to the recovery room in stable condition. I attest to the content of the Intraoperative Record and any orders documented therein. Any exceptio ns are noted below.
[2016-08-09] MEDS ORDERED: CEFTRIAXONE SOD INJ 1 GM in DEXTROSE 5% ADD-VANTAGE 50ML 50 ML IV SCH (23:00)
[2016-08-11] MEDS ORDERED: CIPR-255 PO (10:53)
[2016-08-11] MEDS ORDERED: ACET-1256 PO (10:53)
[2016-08-11] MEDS ORDERED: IBUP-103 PO (10:53)
[2016-08-20] MEDS ORDERED: OXYC-57 PO (08:03)
[2016-09-07] MEDS ORDERED: HYDR-5688 PO (10:20)
[2016-09-07] MEDS ORDERED: DTR/5 PO (10:21)
[2016-09-07] MEDS ORDERED: PHEN-775 PO (10:21)
[2016-12-31] MEDS ORDERED: OXYC-57 PO (10:50)
== END 2016-08-09 16:30 | disposition home or self-care (01) | DRG 690 ==
LOC: ENRESERVTM → ENRESERVDT → C.EDB 20:52 → C.3E 23:54 → EDBEDREQ 08-09 00:18
PROVIDERS: ADMIT Family Medicine; ATTEND Hospitalist
PROC: 0T768DZ Dilation of Right Ureter with Intraluminal Device, Via Natural or Artificial Opening Endoscopic (ICD-10-PCS; principal; 2016-08-09 11:15)
PROC: BT14YZZ Fluoroscopy of Kidneys, Ureters and Bladder using Other Contrast (ICD-10-PCS; principal; 2016-08-09 11:15)
DX: N13.6 Pyonephrosis (principal); N39.0 Urinary tract infection, site not specified; Z88.2 Allergy status to sulfonamides; H35.52 Pigmentary retinal dystrophy; Z83.3 Family history of diabetes mellitus

== ENCOUNTER → 2016-08-19 | Outpatient (CLI) | payer OTHER ==
[~2016-08-19] MED LIST changes: +ACET-1256 PO; -ATV/1 PO; -CHOL1000 PO; +CIPR-255 PO; -CYAN100048 SC; +DTR/5 PO; -FERR1TAB23 PO; +HYDR-5688 PO; +IBUP-103 PO; +MULT1CHW32 PO; +OXYC-57 PO; -PEDI1CHW82 PO; +PHEN-775 PO
--- NOTE | 2016-08-19 08:11 | DIAGNOSTIC IMAGING REPORT ---
KUB CLINICAL HISTORY: Nephrolithiasis. Ureteral stent placement. FINDINGS: An AP supine abdominal radiograph is compared to study dated 08/09/2016 and correlated with abdominal CT dated 08/08/2016. A right ureteral stent is new from previous. A 1.5 cm right renal calculus projects over the renal pelvis. No additional calcifications are identified along the course of the stent. No left renal calculi are suspected. There is a nonobstructed abdominal bowel gas pattern. Pelvic phleboliths are observed. The bony structures appear intact. IMPRESSION: 1. A right ureteral stent is new from previous. 2. A 1.5 cm calculus is again seen projecting over the right renal pelvis. Electronically signed by: Bjorn Velasco M.D. 08/19/2016 8:08 AM Dictated Date/Time: 08/19/2016 8:07 AM
== END | disposition home or self-care (01) ==
LOC: C.RAD 07:16
PROVIDERS: ATTEND Nurse Practitioner Adult Health
DX: N20.0 Calculus of kidney (principal)

== ENCOUNTER → 2016-08-20 | Day surgery (SDC) | payer OTHER ==
[2016-08-11 10:53] VITALS: Ht 167.6 cm; Wt 76.4 kg
[~2016-08-20] VITALS: Ht 167.6 cm; Wt 76.4 kg
[~2016-08-20] MED LIST changes: +ATROPINE SULFATE 0.1 MG/ML 5ML SYR IV PRN; +CIPROFLOXACIN 400MG / D5W IV SCH; +DEXAMETHASONE SOD INJ 4 MG/ML VIAL ONE; +EpHEDrine SULFATE INJ 50 MG/ML AMP IV PRN; +FENTANYL CITRATE INJ 50 MCG/1 ML 2 ML VIAL IV PRN; +FENTANYL CITRATE INJ 50 MCG/1 ML 2 ML VIAL ONE; +GLYCOPYRROLATE INJ 0.2 MG/ML VIAL ONE; +LACTATED RINGER'S 1000ML 1,000 ML IV SCH; +LIDOCAINE HCL 2% 2 ML VIAL (20MG/ML) ONE; +MIDAZOLAM HCL 1 MG/ML 2ML VIAL ONE; +ONDANSETRON INJ 2 MG/ML 2 ML VIAL IV PRN; +ONDANSETRON INJ 2 MG/ML 2 ML VIAL ONE; +OXYCODONE/ACETAMINOPHEN 5-325 TAB PO PRN; +PROPOFOL IV EMULSION 10 MG/ML 20 ML VIAL IV ONE
--- NOTE | 2016-08-20 08:03 | [facility] Post Operative Brief Note ---
Immediate Operative Summary Operative Date Aug 20, 2016. Pre-Operative Diagnosis RIGHT STONE Post-Operative Diagnosis SAME Procedure(s) Performed RIGHT ESWL Surgeon JASMIN Single End Sewer Surgeon(s) NONE Estimated Blood Loss NONE Findings RIGHT RENAL STONE Specimens NONE
--- NOTE | 2016-08-20 08:04 | Discharge Instructions-SurgCtr ---
Discharge Instructions Date of Service Aug 20, 2016. Visit Reason for Visit: Stones Discharge Discharge Diagnosis / Problem: STONE Discharge Goals Goal(s): Therapeutic intervention Medications Stopped Medications Name(s): No blood thinners Activity Recommendations Activity Limitations: resume your previous activity (TAKE IT EASY TODAY) MEDICATIONS: Resume previous medications unless instructed otherwise by your surgeon. Resume pre-ESWL medication except for aspirin, coumadin or other blood thinners. __ Toradol 10 mg every 6 hours for initial pain. __ Lortab 5 mg 1-2 every 4 hours for pain. _X_ Percocet 5 mg 1-2 every 4 hours for pain. __ Macrodantin 50 mg x 3 a day. __ Flomax 1 tab daily one half (1/2) hour after supper. SPECIAL CARE INSTRUCTIONS: 1. Get KUB (x-ray) _X_ day before or day of office visit and bring x-ray to office __ get x-ray 2 days before and tell office you are getting x-rays when you call for the appointment. 2. Strain ALL urine. 3. Please call if you have a fever, chills, severe pain, or constant dribbling of urine. 4. Office phone number . FOLLOW UP VISIT: Please call the office to schedule a follow-up appointment at . Anesthesia . Post Anesthesia Instructions: If you have had General Anesthesia or IV Sedation: * Do not drive today. * Resume driving when surgeon permits. * Do not make important decisions or sign legal documents today. * Call surgeon for: 1. Temperature elevations greater than 101 degrees F. 2. Uncontrollable pain. 3. Excessive bleeding. 4. Persistent nausea and vomiting. 5. Medication intolerance (nausea, vomiting or rash). * For nausea and vomiting use only clear liquids such as: tea, soda, bouillon until nausea subsides, then gradually increase diet as tolerated. * If you have any concerns or questions, call your surgeon's office. If physician is unavailable and it is an emergency, call 911 or go to the nearest emergency room. . Diet Recommendations Home Diet: resume previous diet Procedures Procedures Performed: RIGHT ESWL Pending Studies Studies pending at discharge: no Medical Emergencies . Who to Call and When: Medical Emergencies: If at any time you feel your situation is an emergency, please call 911 immediately. . Non-Emergent Contact Non-Emergency issues call your: Urologist . . "Provider Documentation" section prepared by Praful Kline. . [place] Drug Monitoring Program Search Results: patient reviewed within database
[2016-08-20 10:00] VITALS: BP 115/79; PULSE 86; O2SAT 95
--- NOTE | 2016-08-20 10:11 | Anesthesia Progress Nt - [facility] ---
Anesthesia Post Op Note Date & Time Aug 20, 2016 at 10:10 Vital Signs Pain Intensity: 0 Vital Signs Past 12 Hours Date Time Temp Pulse Resp B/P Pulse Ox O2 Delivery O2 Flow Rate FiO2 08/20/16 09:18 37 90 16 130/78 97 Room Air 08/20/16 09:10 128/94 08/20/16 09:07 87 13 96 08/20/16 09:07 89 13 08/20/16 09:06 93 14 08/20/16 09:06 92 14 93 08/20/16 09:05 37.4 87 20 128/86 96 Room Air 08/20/16 09:05 128/86 08/20/16 09:01 93 16 95 08/20/16 09:01 92 16 08/20/16 09:00 147/92 08/20/16 08:58 78 12 99 08/20/16 08:58 78 12 08/20/16 08:55 121/85 08/20/16 08:53 80 8 08/20/16 08:53 81 8 98 08/20/16 08:52 82 8 99 08/20/16 08:52 81 8 08/20/16 08:50 129/77 08/20/16 08:47 92 13 08/20/16 08:47 91 13 98 08/20/16 08:46 128/74 08/20/16 08:42 95 19 08/20/16 08:42 97 19 98 08/20/16 08:40 119/97 08/20/16 08:37 95 6 136/86 98 08/20/16 08:37 37.3 96 20 136/86 99 Mask 8 08/20/16 08:37 95 6 08/20/16 06:29 36.8 93 16 119/75 93 Room Air Notes Mental Status: alert / awake / arousable, participated in evaluation Pt Amnestic to Procedure: Yes Nausea / Vomiting: adequately controlled Pain: adequately controlled Airway Patency, RR, SpO2: stable & adequate BP & HR: stable & adequate Hydration State: stable & adequate Anesthetic Complications: no major complications apparent
--- NOTE | 2016-08-25 12:24 | OPERATIVE REPORT ---
DATE OF OPERATION: 08/20/2016 PREOPERATIVE DIAGNOSIS: Right renal calculus x2. POSTOPERATIVE DIAGNOSIS: Same. PROCEDURE: Extracorporeal shockwave lithotripsy. FINDINGS: KUB showed stone in the right kidney. SURGEON: Dr. Kline. ANESTHESIA: General. DRAINS: None. COMPLICATIONS: None. SPECIMENS: None. INDICATIONS: The patient is a 35-year-old white female with a right renal stone, being brought in for ESWL. DETAILS OF PROCEDURE: The patient was brought to the litho suite. She was correctly identified and the stone was visualized on her most recent x-rays. After the correct time out was performed the patient was positioned over the therapy head. An adequate level of anesthesia was administered. The extracorporeal shockwave lithotripsy treatment was then commenced. Please see the [place] [facility] sheet for complete treatment summary. After completion of the procedure the patient was taken to the recovery room in stable condition. I attest to the content of the Intraoperative Record and any orders documented therein. Any exceptio ns are noted below.
== END | disposition home or self-care (01) ==
LOC: X.SURG 06:12
PROVIDERS: ATTEND Urology
DX: N20.0 Calculus of kidney (principal); F41.9 Anxiety disorder, unspecified; Z88.2 Allergy status to sulfonamides; Z98.890 Other specified postprocedural states; Z68.26 Body mass index [BMI] 26.0-26.9, adult; Z98.49 Cataract extraction status, unspecified eye; Z80.3 Family history of malignant neoplasm of breast

== ENCOUNTER → 2016-09-01 | Outpatient (CLI) | payer OTHER ==
[~2016-09-01] MED LIST changes: -ATROPINE SULFATE 0.1 MG/ML 5ML SYR IV PRN; -CIPROFLOXACIN 400MG / D5W IV SCH; -DEXAMETHASONE SOD INJ 4 MG/ML VIAL ONE; -EpHEDrine SULFATE INJ 50 MG/ML AMP IV PRN; -FENTANYL CITRATE INJ 50 MCG/1 ML 2 ML VIAL IV PRN; -FENTANYL CITRATE INJ 50 MCG/1 ML 2 ML VIAL ONE; -GLYCOPYRROLATE INJ 0.2 MG/ML VIAL ONE; -LACTATED RINGER'S 1000ML 1,000 ML IV SCH; -LIDOCAINE HCL 2% 2 ML VIAL (20MG/ML) ONE; -MIDAZOLAM HCL 1 MG/ML 2ML VIAL ONE; -ONDANSETRON INJ 2 MG/ML 2 ML VIAL IV PRN; -ONDANSETRON INJ 2 MG/ML 2 ML VIAL ONE; -OXYCODONE/ACETAMINOPHEN 5-325 TAB PO PRN; -PROPOFOL IV EMULSION 10 MG/ML 20 ML VIAL IV ONE
--- NOTE | 2016-09-01 12:38 | DIAGNOSTIC IMAGING REPORT ---
KUB CLINICAL HISTORY: Nephrolithiasis COMPARISON STUDY: 08/19/2016 FINDINGS: There is a double-pigtail right-sided nephroureteral stent. There are fragment a lower pole right renal calculi measuring 15 mm in aggregate. Small bladder calculi overlie the distal aspect of the stent. No left renal calculi are visualized. There is no pathologic bowel dilatation IMPRESSION: 1. No change the position of the right-sided double pigtail nephroureteral stent 2. Fragmented lower pole right renal calculi 3. Tiny bladder calculi overlying the distal pigtail. Electronically signed by: Jose Alejandro De Jesus M.D. 09/01/2016 12:36 PM Dictated Date/Time: 09/01/2016 12:35 PM
== END | disposition home or self-care (01) ==
LOC: C.RAD 12:05
PROVIDERS: ATTEND Nurse Practitioner Adult Health
DX: N20.0 Calculus of kidney (principal)

== ENCOUNTER → 2016-09-02 | Outpatient (CLI) | payer OTHER | END | disposition home or self-care (01) | LOC: C.LABSPEC 10:54 | PROVIDERS: ATTEND Urology | DX: N20.0 Calculus of kidney (principal) ==

== ENCOUNTER → 2016-09-09 | Outpatient (CLI) | payer OTHER ==
[~2016-09-09] MED LIST changes: -CIPR-255 PO
--- NOTE | 2016-09-09 17:04 | DIAGNOSTIC IMAGING REPORT ---
KUB CLINICAL HISTORY: Nephrolithiasis. COMPARISON STUDY: KUB September 01, 2016. FINDINGS: Right ureteral stent appears appropriately positioned. Pelvic calcifications represent phleboliths. The tiny calculi/fragments adjacent to the distal aspect of the right ureteral stent shown on exam of September 01, 2016 are no longer visualized. A 1 cm calculus within lower pole of the right kidney is noted. There may be smaller adjacent fragments. There are no left renal calculi. IMPRESSION: 1. No change in position of the right ureteral stent. No ureteral calculi/fragments identified. 2. No significant change in right-sided nephrolithiasis. Electronically signed by: Jaden Mota M.D. 09/09/2016 5:03 PM Dictated Date/Time: 09/09/2016 5:01 PM
== END | disposition home or self-care (01) ==
LOC: C.RAD 16:40
PROVIDERS: ATTEND Urology
DX: N20.0 Calculus of kidney (principal)

== ENCOUNTER → 2016-09-10 | Day surgery (SDC) | payer OTHER ==
[2016-09-07 10:22] VITALS: Ht 167.6 cm; Wt 76.4 kg
[~2016-09-10] VITALS: Ht 167.6 cm; Wt 76.4 kg
[~2016-09-10] MED LIST changes: +ACETAMINOPHEN 325 MG TAB PO PRN; +ATROPINE SULFATE 0.1 MG/ML 5ML SYR IV PRN; +CEFAZOLIN 2000 MG/60 ML D5W IV SCH; +DiphenhydrAMINE HCL 50 MG/ML VIAL IV PRN; +DiphenhydrAMINE HCL 50 MG/ML VIAL ONE; +EpHEDrine SULFATE INJ 50 MG/ML AMP IV PRN; +FENTANYL CITRATE INJ 50 MCG/1 ML 2 ML VIAL IV PRN; +FENTANYL CITRATE INJ 50 MCG/1 ML 2 ML VIAL ONE; +HYDROCODONE/ACETAMOPHEN 5/325MG TAB PO PRN; +HYDROmorphone INJ 1 MG/ML SYR IV PRN; +LACTATED RINGER'S 1000ML 1,000 ML IV SCH; +LIDOCAINE HCL 2% 2 ML VIAL (20MG/ML) ONE; +MIDAZOLAM HCL 1 MG/ML 2ML VIAL ONE; +ONDANSETRON INJ 2 MG/ML 2 ML VIAL IV PRN; +ONDANSETRON INJ 2 MG/ML 2 ML VIAL ONE; +PROPOFOL IV EMULSION 10 MG/ML 20 ML VIAL IV ONE; +SODIUM CHLORIDE 0.9% 1000ML 1,000 ML IV SCH
--- NOTE | 2016-09-10 07:37 | [facility] Post Operative Brief Note ---
Immediate Operative Summary Operative Date September 10, 2016. Pre-Operative Diagnosis Right Renal Calculi Post-Operative Diagnosis Same Procedure(s) Performed Right Renal Repeat Extracorporeal Shock Wave Lithotripsy Surgeon Dr. Kitchen Knobber Surgeon(s) None Estimated Blood Loss 0 mL Findings Large right renal stone, adjacent to her indwelling stent. Appeared to fragment into several pieces. Specimens None Drains none Anesthesia gen Complication(s) None Disposition Recovery Room / PACU (stable)
--- NOTE | 2016-09-10 07:38 | Discharge Instructions-SurgCtr ---
Discharge Instructions Date of Service September 10, 2016. Visit Reason for Visit: Stones Discharge Discharge Diagnosis / Problem: stones Discharge Goals Goal(s): Decrease discomfort, Improve function, Increase independence, Improve disease control Activity Recommendations Activity Limitations: resume your previous activity Lifting Limitations: none Exercise/Sports Limitations: none May Resume Sexual Activity: when tolerated Shower/Bathe: no limitations Driving or Machine Use: resume 1 day after discharge Anesthesia . Post Anesthesia Instructions: If you have had General Anesthesia or IV Sedation: * Do not drive today. * Resume driving when surgeon permits. * Do not make important decisions or sign legal documents today. * Call surgeon for: 1. Temperature elevations greater than 101 degrees F. 2. Uncontrollable pain. 3. Excessive bleeding. 4. Persistent nausea and vomiting. 5. Medication intolerance (nausea, vomiting or rash). * For nausea and vomiting use only clear liquids such as: tea, soda, bouillon until nausea subsides, then gradually increase diet as tolerated. * If you have any concerns or questions, call your surgeon's office. If physician is unavailable and it is an emergency, call 911 or go to the nearest emergency room. . Instructions / Follow-Up Instructions / Follow-Up Please keep your previously scheduled follow up appointment. Diet Recommendations Home Diet: no limitations, resume previous diet Procedures Procedures Performed: Right Renal Repeat Extracorporeal Shock Wave Lithotripsy Pending Studies Studies pending at discharge: no Medical Emergencies . Who to Call and When: Medical Emergencies: If at any time you feel your situation is an emergency, please call 911 immediately. . Non-Emergent Contact Non-Emergency issues call your: Urologist Call Non-Emergent contact if: you have a fever, temperature is above 101.5, your pain is not controlled, your pain is worsening . . "Provider Documentation" section prepared by Nicholas Hidalgo. .
[2016-09-10 08:44] VITALS: TEMP 36.4
--- NOTE | 2016-09-10 08:47 | Anesthesia Progress Nt - [facility] ---
Anesthesia Post Op Note Date & Time September 10, 2016 at 08:47 Vital Signs Pain Intensity: 0 Vital Signs Past 12 Hours Date Time Temp Pulse Resp B/P Pulse Ox O2 Delivery O2 Flow Rate FiO2 09/10/16 08:27 19 09/10/16 08:27 72 19 09/10/16 08:26 68 20 09/10/16 08:26 66 20 126/82 100 09/10/16 08:25 37.1 70 16 126/82 100 Room Air 09/10/16 08:21 79 16 100 09/10/16 08:21 76 16 09/10/16 08:20 126/82 09/10/16 08:16 67 11 97 09/10/16 08:16 68 11 09/10/16 08:15 115/71 09/10/16 08:11 70 14 09/10/16 08:11 71 14 97 09/10/16 08:10 110/72 09/10/16 08:06 77 15 09/10/16 08:06 76 15 99 09/10/16 08:05 120/76 09/10/16 08:03 75 13 09/10/16 08:03 74 13 100 09/10/16 08:00 114/77 09/10/16 07:58 71 8 09/10/16 07:58 71 8 100 09/10/16 07:57 79 17 09/10/16 07:57 79 17 100 09/10/16 07:55 129/79 09/10/16 07:52 84 18 09/10/16 07:52 85 18 100 09/10/16 07:50 118/83 09/10/16 07:48 130/90 09/10/16 07:47 37.4 89 12 130/90 100 Diffusion Mask 6 09/10/16 07:47 90 4 09/10/16 07:47 90 4 100 09/10/16 06:30 37.6 88 20 125/85 100 Room Air Notes Mental Status: alert / awake / arousable, participated in evaluation Pt Amnestic to Procedure: Yes Nausea / Vomiting: adequately controlled Pain: adequately controlled Airway Patency, RR, SpO2: stable & adequate BP & HR: stable & adequate Hydration State: stable & adequate Anesthetic Complications: no major complications apparent
[2016-09-10 08:56] VITALS: BP 114/69; PULSE 71; O2SAT 100
--- NOTE | 2016-09-10 12:23 | OPERATIVE REPORT ---
DATE OF OPERATION: 09/10/2016 PREOPERATIVE DIAGNOSIS: Right renal calculus. POSTOPERATIVE DIAGNOSIS: Right renal calculus. PROCEDURE PERFORMED: Right extracorporeal shockwave lithotripsy. ANESTHESIA: General. ESTIMATED BLOOD LOSS: 0. URINE OUTPUT: Not recorded. SPECIMENS: None. COMPLICATIONS: None. COMPLICATIONS: There were no complications. DESCRIPTION OF THE PROCEDURE: Maggie Godfrey was identified in the preoperative holding area. Appropriate informed consents were reviewed and completed and the patient was transported to the operating suite. Upon arrival, she received appropriate preoperative antibiotics in the form of cefazolin. Adequate general anesthesia was achieved and her stone was localized adjacent to our previously placed right ureteral stent in the kidney. Lithotripsy was commenced with a total of 2500 shocks delivered to the stone. Further details can be found on the [facility] Management Information Sheet. At the conclusion of the case, she was extubated and taken to the PACU in stable condition. I attest to the content of the Intraoperative Record and any orders documented therein. Any exceptio ns are noted below.
== END | disposition home or self-care (01) ==
LOC: X.SURG 06:09
PROVIDERS: ATTEND Urology
DX: N20.0 Calculus of kidney (principal); D64.9 Anemia, unspecified; F41.9 Anxiety disorder, unspecified; E87.6 Hypokalemia; D89.89 Other specified disorders involving the immune mechanism, not elsewhere classified; G63 Polyneuropathy in diseases classified elsewhere; E53.8 Deficiency of other specified B group vitamins; E55.9 Vitamin D deficiency, unspecified; H35.52 Pigmentary retinal dystrophy; Z79.899 Other long term (current) drug therapy

== ENCOUNTER → 2016-09-20 | Outpatient (CLI) | payer OTHER ==
[~2016-09-20] MED LIST changes: -ACETAMINOPHEN 325 MG TAB PO PRN; -ATROPINE SULFATE 0.1 MG/ML 5ML SYR IV PRN; -CEFAZOLIN 2000 MG/60 ML D5W IV SCH; -DiphenhydrAMINE HCL 50 MG/ML VIAL IV PRN; -DiphenhydrAMINE HCL 50 MG/ML VIAL ONE; -EpHEDrine SULFATE INJ 50 MG/ML AMP IV PRN; -FENTANYL CITRATE INJ 50 MCG/1 ML 2 ML VIAL IV PRN; -FENTANYL CITRATE INJ 50 MCG/1 ML 2 ML VIAL ONE; -HYDROCODONE/ACETAMOPHEN 5/325MG TAB PO PRN; -HYDROmorphone INJ 1 MG/ML SYR IV PRN; -LACTATED RINGER'S 1000ML 1,000 ML IV SCH; -LIDOCAINE HCL 2% 2 ML VIAL (20MG/ML) ONE; -MIDAZOLAM HCL 1 MG/ML 2ML VIAL ONE; -ONDANSETRON INJ 2 MG/ML 2 ML VIAL IV PRN; -ONDANSETRON INJ 2 MG/ML 2 ML VIAL ONE; -PROPOFOL IV EMULSION 10 MG/ML 20 ML VIAL IV ONE; -SODIUM CHLORIDE 0.9% 1000ML 1,000 ML IV SCH
--- NOTE | 2016-09-20 17:16 | DIAGNOSTIC IMAGING REPORT ---
KUB CLINICAL HISTORY: N20.0 Nephrolithiasis BE DONE EITHER THE NIGHT BEFORE OR IBANEZ nephrocalcinosis COMPARISON STUDY: 09/09/2016 FINDINGS: Interval fragmentation of the 1 cm calcification lower pole right kidney. Right ureteral stent in good position. Several punctate calcifications adjacent to the distal aspect of the right ureteral stent. Left renal silhouette is unremarkable. IMPRESSION: 1. Interval fragmentation of the 1 cm calcification lower pole right kidney. 2. 2 calcific fragments adjacent to the distal aspect of the right ureteral stent. Electronically signed by: Rudy Bañuelos M.D. 09/20/2016 5:15 PM Dictated Date/Time: 09/20/2016 5:13 PM
== END | disposition home or self-care (01) ==
LOC: C.RAD 16:50
PROVIDERS: ATTEND Urology
DX: N20.0 Calculus of kidney (principal)

== ENCOUNTER → 2016-12-10 | Outpatient (CLI) | payer OTHER ==
[~2016-12-10] MED LIST changes: -DTR/5 PO; +OXYB5TAB74 PO
--- NOTE | 2016-12-10 17:12 | DIAGNOSTIC IMAGING REPORT ---
KUB HISTORY: N20.0 Nephrolithiasis COMPARISON: KUB 09/20/2016. FINDINGS: The bowel gas pattern is unremarkable. There are no dilated loops of small bowel to suggest an obstruction. The right ureteral stent is been removed. Stable calcifications in the deep pelvis consistent with phleboliths. No ureteral or bladder calculi. No left renal calculi identified. A 6 mm stone overlying the right kidney/right renal pelvis. No pneumoperitoneum or pneumatosis. IMPRESSION: 1. A 6 mm stone overlying the right kidney/right renal pelvis. 2. No definite ureteral calculi. Electronically signed by: Markos Herr M.D. 12/10/2016 5:11 PM Dictated Date/Time: 12/10/2016 5:09 PM
== END | disposition home or self-care (01) ==
LOC: C.RAD 16:37
PROVIDERS: ATTEND Urology
DX: N20.0 Calculus of kidney (principal)

== ENCOUNTER → 2016-12-13 | Outpatient (CLI) | payer OTHER | END | disposition home or self-care (01) | LOC: C.LABSPEC 11:20 | PROVIDERS: ATTEND Nurse Practitioner Adult Health | DX: N20.0 Calculus of kidney (principal) ==

== ENCOUNTER → 2016-12-14 | Outpatient (CLI) | payer OTHER ==
[2016-12-14 15:59] LABS: BLOOD UREA NITROGEN 8 mg/dl (7-18); BUN/CREATININE RATIO 12.2 (10-20); CALCIUM 8.7 mg/dl (8.5-10.1); CARBON DIOXIDE 30 mmol/L (21-32); CHLORIDE 109 mmol/L (98-107); CREATININE 0.69 mg/dl (0.60-1.20); GLUCOSE 79 mg/dl (70-99); POTASSIUM 3.9 mmol/L (3.5-5.1); SODIUM 143 mmol/L (136-145)
[2016-12-14 16:28] LABS: BASO % 0.2 %; BASO ABS # 0.01 K/uL (0-0.2); COMPLETE YES; EOS % 0.7 %; HEMATOCRIT 39.6 % (37-47); IG% 0.2 %; LYMPH % 34.3 %; LYMPH ABS # 1.57 K/uL (1.2-3.4); MEAN CELL VOLUME 89.4 fL (80-100); MEAN CORPUSCULAR HEMOGLOBIN 29.8 pg (25-34); MEAN CORPUSCULAR HGB CONC 33.3 g/dl (32-36); MEAN PLATELET VOLUME 10.5 fL (7.4-10.4); MONO % 4.6 %; PLATELET COUNT 165 K/uL (130-400); RED BLOOD COUNT 4.43 M/uL (4.2-5.4); WHITE BLOOD COUNT 4.58 K/uL (4.8-10.8)
== END | disposition home or self-care (01) ==
LOC: C.LAB 14:22
PROVIDERS: ATTEND Nurse Practitioner Adult Health
DX: N20.0 Calculus of kidney (principal)

== ENCOUNTER → 2016-12-15 | Outpatient (CLI) | payer OTHER ==
--- NOTE | 2016-12-16 14:05 | MAMMOGRAPHY REPORT ---
BILATERAL DIGITAL SCREENING MAMMOGRAM TOMOSYNTHESIS WITH CAD: 12/15/2016 CLINICAL HISTORY: Routine screening. TECHNIQUE: Breast tomosynthesis in addition to standard 2D mammography was performed. Current study was also evaluated with a Computer Aided Detection (CAD) system. COMPARISON: Comparison is made to exams dated: 12/15/2015 mammogram, 12/11/2014 mammogram, 12/05/2013 ma mmogram, 03/08/2012 mammogram, and 03/02/2011 mammogram - [facility]. BREAST COMPOSITION: There are scattered areas of fibroglandular density in both breasts. FINDINGS: No suspicious masses, calcifications, or areas of architectural distortion are noted in ei ther breast. There has been no significant interval change compared to prior exams. IMPRESSION: ACR BI-RADS CATEGORY 1: NEGATIVE There is no mammographic evidence of malignancy. A 1 year screening mammogram is recommended. The pa tient will receive written notification of the results. Approximately 10% of breast cancers are not detected with mammography. A negative mammographic report should not delay biopsy if a clinically suggestive mass is present. Barbara Isaac M.D. ah/:12/15/2016 15:16:08 Ground Hand: Tej Dhillon RT(R)(M), [facility] letter sent: Normal 1/2 BI-RADS Code: ACR BI-RADS Category 1: Negative
== END | disposition home or self-care (01) ==
LOC: C.MAMM 12:43
PROVIDERS: ATTEND Internal Medicine
DX: Z12.31 Encounter for screening mammogram for malignant neoplasm of breast (principal)

== ENCOUNTER → 2016-12-30 | Outpatient (CLI) | payer OTHER ==
--- NOTE | 2016-12-30 17:15 | DIAGNOSTIC IMAGING REPORT ---
KUB HISTORY: N20.0 Nephrolithiasis COMPARISON: KUB radiograph 12/10/2016. FINDINGS: The bowel gas pattern is non-obstructive. There is no organomegaly. Unchanged 6 mm right-sided nephrolithiasis is noted . No definite additional renal calculi identified. A few phleboliths are seen involving the pelvis. No pneumoperitoneum or pneumatosis. No fracture. IMPRESSION: Unchanged position of 6 mm right-sided kidney stone. No definite ureterolithiasis. Electronically signed by: Harvey Dong M.D. 12/30/2016 5:14 PM Dictated Date/Time: 12/30/2016 5:12 PM
== END | disposition home or self-care (01) ==
LOC: C.RAD 16:43
PROVIDERS: ATTEND Nurse Practitioner Adult Health
DX: N20.0 Calculus of kidney (principal)

== ENCOUNTER → 2016-12-31 | Day surgery (SDC) | payer OTHER ==
[2016-12-16 07:42] VITALS: Ht 167.6 cm; Wt 76.4 kg
[~2016-12-31] VITALS: Ht 167.6 cm; Wt 76.4 kg
[~2016-12-31] MED LIST changes: +ATROPINE SULFATE 0.1 MG/ML 5ML SYR IV PRN; +DEXAMETHASONE SOD INJ 4 MG/ML VIAL ONE; +EpHEDrine SULFATE INJ 50 MG/ML AMP IV PRN; +FENTANYL CITRATE INJ 50 MCG/1 ML 2 ML VIAL IV PRN; +FENTANYL CITRATE INJ 50 MCG/1 ML 2 ML VIAL ONE; +LACTATED RINGER'S 1000ML 1,000 ML IV SCH; +LIDOCAINE HCL 2% 2 ML VIAL (20MG/ML) ONE; +ONDANSETRON INJ 2 MG/ML 2 ML VIAL ONE; +OXYCODONE/ACETAMINOPHEN 5-325 TAB PO PRN; +PROPOFOL IV EMULSION 10 MG/ML 20 ML VIAL IV ONE
--- NOTE | 2016-12-31 10:50 | Discharge Instructions-SurgCtr ---
Discharge Instructions Date of Service Dec 31, 2016. Visit Reason for Visit: Stones Discharge Discharge Diagnosis / Problem: STONE Discharge Goals Goal(s): Therapeutic intervention Activity Recommendations Activity Limitations: resume your previous activity (TAKE IT EASY TODAY) Anesthesia . Post Anesthesia Instructions: If you have had General Anesthesia or IV Sedation: * Do not drive today. * Resume driving when surgeon permits. * Do not make important decisions or sign legal documents today. * Call surgeon for: 1. Temperature elevations greater than 101 degrees F. 2. Uncontrollable pain. 3. Excessive bleeding. 4. Persistent nausea and vomiting. 5. Medication intolerance (nausea, vomiting or rash). * For nausea and vomiting use only clear liquids such as: tea, soda, bouillon until nausea subsides, then gradually increase diet as tolerated. * If you have any concerns or questions, call your surgeon's office. If physician is unavailable and it is an emergency, call 911 or go to the nearest emergency room. . Instructions / Follow-Up Instructions / Follow-Up MEDICATIONS: Resume previous medications unless instructed otherwise by your surgeon. Resume pre-ESWL medication except for aspirin, coumadin or other blood thinners. __ Toradol 10 mg every 6 hours for initial pain. __ Lortab 5 mg 1-2 every 4 hours for pain. _X_ Percocet 5 mg 1-2 every 4 hours for pain. __ Macrodantin 50 mg x 3 a day. __ Flomax 1 tab daily one half (1/2) hour after supper. SPECIAL CARE INSTRUCTIONS: 1. Get KUB (x-ray) _X_ day before or day of office visit and bring x-ray to office __ get x-ray 2 days before and tell office you are getting x-rays when you call for the appointment. 2. Strain ALL urine. 3. Please call if you have a fever, chills, severe pain, or constant dribbling of urine. 4. Office phone number . FOLLOW UP VISIT: Please call the office to schedule a follow-up appointment at . Diet Recommendations Home Diet: resume previous diet Pending Studies Studies pending at discharge: no Medical Emergencies . Who to Call and When: Medical Emergencies: If at any time you feel your situation is an emergency, please call 911 immediately. . Non-Emergent Contact Non-Emergency issues call your: Urologist Call Non-Emergent contact if: temperature is above 101.5, your pain is not controlled . . "Provider Documentation" section prepared by Praful Kline. . [place] Drug Monitoring Program Search Results: patient reviewed within database
--- NOTE | 2016-12-31 10:54 | [facility] Operative Report ---
Operative Report Operative Date Dec 31, 2016. Pre-Operative Diagnosis RIGHT RENAL STONE Post-Operative Diagnosis SAME Procedure(s) Performed RIGHT ESWL Surgeon JASMIN Nutritional Yeast Supervisor Surgeon(s) NONE Estimated Blood Loss NONE Findings RIGHT RENAL STONE Specimens NONE Drains NONE Anesthesia GENERAL Complication(s) None Disposition Recovery Room / PACU Indications RIGHT RENAL STONE Description of Procedure Patient was identified in the preoperative holding area, appropriate informed consent was reviewed and completed and the patient was transported to the operating suite. Upon arrival appropriate preoperative antibiotics were administered and general anesthesia induced. The patient was placed in supine position and the stone was localized under fluoroscopy. A total of [__2500_] shocks were delivered to the stone. There appeared to be good fragmentation of the stone. Details of this procedure can be found on the [facility] information sheet. At the conclusion of the case the patient was extubated and taken to the PACU in stable condition. There were no complications. I attest to the content of the Intraoperative Record and any orders documented therein. Any exceptions are noted below.
--- NOTE | 2016-12-31 11:43 | Anesthesia Progress Nt - [facility] ---
Anesthesia Post Op Note Date & Time Dec 31, 2016 at 11:43 Vital Signs Pain Intensity: 0 Vital Signs Past 12 Hours Date Time Temp Pulse Resp B/P (MAP) Pulse Ox O2 Delivery O2 Flow Rate FiO2 12/31/16 11:24 36.9 78 12 130/83 100 Mask 6 12/31/16 09:34 36.7 83 22 113/79 (90) 100 Room Air Notes Mental Status: alert / awake / arousable, participated in evaluation Pt Amnestic to Procedure: Yes Nausea / Vomiting: adequately controlled Pain: adequately controlled Airway Patency, RR, SpO2: stable & adequate BP & HR: stable & adequate Hydration State: stable & adequate Anesthetic Complications: no major complications apparent
[2016-12-31 11:59] VITALS: TEMP 36.8
[2016-12-31 12:19] VITALS: BP 119/84; PULSE 62; O2SAT 100
== END | disposition home or self-care (01) ==
LOC: X.SURG 08:58
PROVIDERS: ATTEND Urology
DX: N20.0 Calculus of kidney (principal); Z83.3 Family history of diabetes mellitus; Z87.442 Personal history of urinary calculi; Z98.41 Cataract extraction status, right eye; Z98.42 Cataract extraction status, left eye; G62.9 Polyneuropathy, unspecified; H35.52 Pigmentary retinal dystrophy

== ENCOUNTER → 2017-01-20 | Outpatient (CLI) | payer OTHER ==
[~2017-01-20] MED LIST changes: -ATROPINE SULFATE 0.1 MG/ML 5ML SYR IV PRN; -DEXAMETHASONE SOD INJ 4 MG/ML VIAL ONE; -EpHEDrine SULFATE INJ 50 MG/ML AMP IV PRN; -FENTANYL CITRATE INJ 50 MCG/1 ML 2 ML VIAL IV PRN; -FENTANYL CITRATE INJ 50 MCG/1 ML 2 ML VIAL ONE; -LACTATED RINGER'S 1000ML 1,000 ML IV SCH; -LIDOCAINE HCL 2% 2 ML VIAL (20MG/ML) ONE; -ONDANSETRON INJ 2 MG/ML 2 ML VIAL ONE; -OXYCODONE/ACETAMINOPHEN 5-325 TAB PO PRN; -PROPOFOL IV EMULSION 10 MG/ML 20 ML VIAL IV ONE
--- NOTE | 2017-01-20 11:17 | DIAGNOSTIC IMAGING REPORT ---
KUB CLINICAL HISTORY: Nephrolithiasis. FINDINGS: 2 AP supine abdominal radiographs are compared to study dated 12/30/2016. There is a nonobstructed abdominal bowel gas pattern. Moderate colonic fecal retention is noted. No renal calculi are clearly identified on today's examination. The renal shadows are largely obscured by overlying colonic contents. No ureteral stone is seen. Pelvic phleboliths are unchanged. The bony structures appear intact. Mild thoracolumbar scoliosis is observed. IMPRESSION: There is no radiographic evidence of nephrolithiasis on today's examination. The renal shadows are largely obscured by overlying colonic contents. Electronically signed by: Bjorn Velasco M.D. 01/20/2017 11:16 AM Dictated Date/Time: 01/20/2017 11:14 AM
== END | disposition home or self-care (01) ==
LOC: C.RAD 10:22
PROVIDERS: ATTEND Nurse Practitioner Adult Health
DX: N20.0 Calculus of kidney (principal)

== ENCOUNTER → 2017-01-24 | Outpatient (CLI) | payer OTHER | END | disposition home or self-care (01) | LOC: C.LABSPEC 17:04 | PROVIDERS: ATTEND Nurse Practitioner Adult Health | DX: N20.0 Calculus of kidney (principal); R31.29 Other microscopic hematuria ==

== ENCOUNTER → 2017-07-18 | Outpatient (CLI) | payer OTHER ==
[~2017-07-18] MED LIST changes: +DTR/5 PO; -OXYB5TAB74 PO; -OXYC-57 PO
--- NOTE | 2017-07-18 12:12 | DIAGNOSTIC IMAGING REPORT ---
KUB CLINICAL HISTORY: 36 years-old Female presenting with N20.0 [id number]. TECHNIQUE: Single supine view of the abdomen was obtained. COMPARISON: 01/20/2017. FINDINGS: Nonobstructive bowel gas pattern. No gross pneumoperitoneum. Allowing for bowel gas and stool, no calcifications to suggest nephrolithiasis. Stable distribution of pelvic phleboliths. No convincing evidence of ureteral calculi. Osseous structures normal. Lung bases clear. IMPRESSION: 1. No radiographic evidence of renal or ureteral calculi allowing for bowel gas and stool. Electronically signed by: Derik Marinelli M.D. 07/18/2017 12:10 PM Dictated Date/Time: 07/18/2017 12:09 PM
== END | disposition home or self-care (01) ==
LOC: C.RAD 10:16
PROVIDERS: ATTEND Nurse Practitioner Adult Health
DX: N20.0 Calculus of kidney (principal)

== ENCOUNTER → 2017-07-25 | Outpatient (CLI) | payer OTHER | END | disposition home or self-care (01) | LOC: C.LABSPEC 10:15 | PROVIDERS: ATTEND Urology | DX: N39.0 Urinary tract infection, site not specified (principal) ==

== ENCOUNTER → 2017-07-25 | Outpatient (CLI) | payer OTHER ==
[2017-07-25 10:36] LABS: BLOOD UREA NITROGEN 11 mg/dl (7-18); CALCIUM 9.4 mg/dl (8.5-10.1); CARBON DIOXIDE 24 mmol/L (21-32); CREATININE 0.69 mg/dl (0.60-1.20); GLUCOSE 92 mg/dl (70-99); PHOSPHORUS 2.9 mg/dl (2.5-4.9); POTASSIUM 3.4 mmol/L (3.5-5.1); SODIUM 138 mmol/L (136-145)
== END | disposition home or self-care (01) ==
LOC: C.LAB 09:39
PROVIDERS: ATTEND Internal Medicine Nephrology
DX: N20.0 Calculus of kidney (principal); E55.9 Vitamin D deficiency, unspecified

== ENCOUNTER → 2017-12-19 | Outpatient (CLI) | payer OTHER ==
--- NOTE | 2017-12-20 07:00 | MAMMOGRAPHY REPORT ---
BILATERAL DIGITAL SCREENING MAMMOGRAM TOMOSYNTHESIS WITH CAD: 12/19/2017 CLINICAL HISTORY: Routine screening. TECHNIQUE: The study was acquired using full field digital technology and interpreted from soft copy. Breast tomosynthesis in addition to standard 2D mammography was performed. Current study was also ev aluated with a Computer Aided Detection (CAD) system. COMPARISON: Comparison is made to exams dated: 12/15/2016 mammogram, 12/15/2015 mammogram, 12/11/2014 m ammogram, 12/05/2013 mammogram, 03/08/2012 mammogram, and 03/02/2011 mammogram - [facility]. BREAST COMPOSITION: There are scattered areas of fibroglandular density in both breasts. FINDINGS: The parenchymal pattern is unchanged. No developing mass, architectural distortion or cluster of susp icious microcalcifications is seen in either breast. IMPRESSION: ACR BI-RADS CATEGORY 2: BENIGN There is no mammographic evidence of malignancy. A 1 year screening mammogram is recommended.( 019) The patient will receive written notification of the results. Some breast cancers are not detected with mammography. A negative mammographic report should not tamar y biopsy if a clinically suggestive mass is present. Cher Kitchen M.D. ay/:12/19/2017 14:10:58 Attending Technologist: Lucinda Phipps RT(R)(M), [facility] Gang Sawyer: RT Sukhdev(R)(M), [facility] letter sent: Normal 1/2 BI-RADS Code: ACR BI-RADS Category 2: Benign
== END | disposition home or self-care (01) ==
LOC: C.MAMM 09:28
PROVIDERS: ATTEND Internal Medicine
DX: Z12.31 Encounter for screening mammogram for malignant neoplasm of breast (principal)